=== PATIENT | female | born 1965 | race Caucasian/White ===

== ENCOUNTER 2025-02-16 06:25 | Day surgery (SDC) | payer OTHER ==
[~2025-02-16 06:25] MED LIST: Sodium Chloride 0.9% 10 ML Syringe FLUSH PRN; Sodium Chloride 0.9% 10 ML Syringe FLUSH SCH
[2025-02-16] MEDS: Lactated Ringers 1,000 ML IV SCH (07:00)
[2025-02-16] MEDS ORDERED: propofoL 500 MG/50 ML 50 ML ONE ×2 (07:10→07:43)
[2025-02-16] MEDS ORDERED: Propofol 200 MG/20 ML SDV ONE (07:10)
[2025-02-16] MEDS ORDERED: Dexamethasone 4 MG/ML 5 ML MDV ONE (07:22)
[2025-02-16] MEDS ORDERED: Ketorolac 15 MG/ML SDV ONE (07:22)
[2025-02-16] MEDS ORDERED: Ondansetron 4 MG/2 ML SDV ONE (07:22)
[2025-02-16 07:27] LABS: BASOPHILS ABSOLUTE AUTO 0.0 K/mm3 (0.0-0.2); BASOPHILS PERCENT AUTO 0.5 % (0.0-1.0); EOSINOPHILS ABSOLUTE AUTO 0.1 K/mm3 (0.0-0.4); EOSINOPHILS PERCENT AUTO 1.7 % (0.0-6.0); IMMATURE GRAN ABSOLUTE AUTO 0.03 K/mm3 (0.00-0.05); IMMATURE GRAN PERCENT AUTO 0.4 % (0.0-0.4); LYMPHOCYTES ABSOLUTE AUTO 1.5 K/mm3 (1.0-4.8); LYMPHOCYTES PERCENT AUTO 18.1 % (24.0-44.0); MEAN PLATELET VOLUME 9.3 fl (9.4-12.3); MONOCYTES ABSOLUTE AUTO 0.5 K/mm3 (0.0-0.8); MONOCYTES PERCENT AUTO 6.6 % (0.0-8.0); NEUTROPHILS ABSOLUTE AUTO 6.0 K/mm3 (1.8-7.7); NEUTROPHILS PERCENT AUTO 72.7 % (41.0-71.0); NRBC ABSOLUTE 0.00 (0.00-0.02); NRBC PERCENT 0.0 % (0.0-0.2); PLATELET COUNT,PLT 215 K/mm3 (150-400); RED BLOOD CELL COUNT 4.24 M/mm3 (4.10-5.30); WHITE BLOOD CELL COUNT,WBC 8.21 K/mm3 (3.9-11.3)
[2025-02-16 07:39] LABS: BLOOD UREA NITROGEN,BUN 15.0 mg/dL (7-18); CARBON DIOXIDE,CO2 24.0 mEq/L (21-32); CHLORIDE,CL 107.0 mEq/L (98-107); CREATININE 1.0 mg/dL (0.55-1.02); EST CRCL DRUG DOSING (CG) 57.45 mL/min; ESTIMATED GFR 64.0 mL/min (>60); GLUCOSE RANDOM 104.0 mg/dL (70-99); POTASSIUM,K 4.6 mEq/L (3.5-5.1); SODIUM,NA 140.0 mEq/L (136-145)
[2025-02-16] MEDS: fentaNYL 100 MCG/2 ML SDV IVPUSH PRN (08:22)
[2025-02-16] MEDS ORDERED: Ondansetron 4 MG/2 ML SDV IVPUSH ONE (08:30)
== END 2025-02-16 11:00 | disposition home or self-care (01) ==
LOC: JD.SDS 06:25
PROVIDERS: ATTEND Obstetrics & Gynecology
DX: N84.0 Polyp of corpus uteri (principal); E66.01 Morbid (severe) obesity due to excess calories; E03.9 Hypothyroidism, unspecified; Z88.8 Allergy status to other drugs, medicaments and biological substances; Z68.42 Body mass index [BMI] 45.0-49.9, adult; Z79.890 Hormone replacement therapy; Z79.899 Other long term (current) drug therapy
CPT/HCPCS: 36415; 58558; 80048; 85025; J1100; J1885; J2003; J2405; J2704; J3010; J7120; 00952; J1171